=== PATIENT | female | born 1985 | race Caucasian/White ===

== ENCOUNTER 2022-04-16 13:55 | Emergency (ER) | payer MEDICAID ==
[2022-04-16] MEDS ORDERED: Ketorolac 30 MG/ML SDV IVPUSH ONE (14:24)
== END 2022-04-16 15:54 | disposition home or self-care (01) ==
LOC: JP.ED 13:55
DX: S83.104A Unspecified dislocation of right knee, initial encounter (principal); W00.0XXA Fall on same level due to ice and snow, initial encounter
CPT/HCPCS: 73562-26-RT; 73562-RT; 96374; 99282; 99284-25; J1885